=== PATIENT | female | born 1965 | race Caucasian/White ===

== ENCOUNTER 2022-04-06 11:03 | Emergency (ER) | payer OTHER ==
[2022-04-06 14:09] LABS: BASOPHIL 0.5 % (0-2); EOSINOPHIL 0.5 % (0-5); HCT 27.3 % (37.0-47.0); LYMPHOCYTE 30.4 % (15-48); MCV 94.1 fL (78.0-100.0); MONOCYTE 7.1 % (0-12); MPV 11.1 fL (6.0-9.5); NEUTROPHIL 52.7 % (41-80); RDW 16.4 % (11.5-14.0); WBC 10.8 K/uL (4.0-10.5)
[2022-04-06 14:31] LABS: PLT 19 K/uL (150-400)
[2022-04-06 15:27] LABS: INR 1.01 (0.9-1.2)
[2022-04-06 15:28] LABS: BUN/CREAT RATIO (CALC) 31.7 RATIO; CREATININE 0.6 mg/dL (0.51-0.95); POTASSIUM 3.5 mmol/L (3.5-5.1)
[2022-04-06 15:46] LABS: ALBUMIN 2.3 g/dL (3.4-5.0); BILIRUBIN - DIRECT 1.1 mg/dL (0.00-0.20); BILIRUBIN - TOTAL 1.8 mg/dL (0.2-1.0); GLOBULIN (CALCULATION) 3.1 g/dL; TOTAL PROTEIN 5.4 g/dL (6.4-8.2)
== END 2022-04-06 16:18 | disposition home or self-care (01) ==
LOC: FER 11:03
PROVIDERS: Emergency Medicine; Nurse Practitioner Family
DX: I87.2 Venous insufficiency (chronic) (peripheral) (principal); D69.6 Thrombocytopenia, unspecified; R94.5 Abnormal results of liver function studies; E11.9 Type 2 diabetes mellitus without complications; J44.9 Chronic obstructive pulmonary disease, unspecified; I10 Essential (primary) hypertension; Z28.310 Unvaccinated for COVID-19; Z88.8 Allergy status to other drugs, medicaments and biological substances; Z79.4 Long term (current) use of insulin; Z79.899 Other long term (current) drug therapy
CPT/HCPCS: 36415; 80048; 80076; 85025; 85610; 85730; 99283

== ENCOUNTER 2022-04-08 17:54 | Inpatient (IN) | payer OTHER ==
[~2022-04-08] VITALS: Ht 167.6 cm; Wt 80.9 kg
[2022-04-08 19:51] LABS: INR 1.11 (0.9-1.2); PTT 24.4 SECONDS (24.9-34.6)
[2022-04-08 20:01] LABS: BILIRUBIN - TOTAL 2.7 mg/dL (0.2-1.0); CREATININE 0.71 mg/dL (0.51-0.95); GLOBULIN (CALCULATION) 3.8 g/dL; POTASSIUM 3.5 mmol/L (3.5-5.1); TOTAL PROTEIN 5.8 g/dL (6.4-8.2)
[2022-04-08 20:28] LABS: CORONAVIRUS 2019 SARS-COV-2 NEGATIVE (NEGATIVE); INFLUENZA A NAA NEGATIVE (NEGATIVE)
[2022-04-08 20:33] LABS: BASOPHIL 0.5 % (0-2); EOSINOPHIL 0.5 % (0-5); HCT 24.6 % (37.0-47.0); HGB 8.1 g/dl (12.5-16.0); LYMPHOCYTE 43.9 % (15-48); MCHC 32.9 g/dL (32.0-36.0); MCV 94.3 fL (78.0-100.0); MONOCYTE 4.6 % (0-12); MPV 13.7 fL (6.0-9.5); NEUTROPHIL 43.3 % (41-80); NRBC 6.2; RBC 2.61 M/uL (4.20-5.40); RDW 16.9 % (11.5-14.0)
[2022-04-08 20:38] LABS: PLT 14 K/uL (150-400); WBC 5.7 K/uL (4.0-10.5)
[2022-04-08 20:52] LABS: LACTIC ACID 2.1 mmol/L (0.4-1.9)
[2022-04-08 20:53] LABS: ACETAMINOPHEN (TYLENOL) < 2.0 ug/mL (10.0-30.0)
[2022-04-09 06:16] LABS: BASOPHIL 0.6 % (0-2); EOSINOPHIL 0.4 % (0-5); HCT 22.4 % (37.0-47.0); HGB 7.4 g/dl (12.5-16.0); LYMPHOCYTE 36.4 % (15-48); MCH 31.4 pg (25.0-31.0); MCV 94.9 fL (78.0-100.0); MPV 10.9 fL (6.0-9.5); NEUTROPHIL 53.5 % (41-80); NRBC 5.9; RBC 2.36 M/uL (4.20-5.40); WBC 4.7 K/uL (4.0-10.5)
[2022-04-09 06:28] LABS: PLT 24 K/uL (150-400)
[2022-04-09 06:49] LABS: ALBUMIN 1.6 g/dL (3.4-5.0); BILIRUBIN - TOTAL 2.4 mg/dL (0.2-1.0); BUN/CREAT RATIO (CALC) 28.6 RATIO; CREATININE 0.77 mg/dL (0.51-0.95); GLOBULIN (CALCULATION) 2.8 g/dL; POTASSIUM 2.9 mmol/L (3.5-5.1); TOTAL PROTEIN 4.4 g/dL (6.4-8.2)
[2022-04-09 06:53] LABS: BILIRUBIN 2+ mg/dL (NEGATIVE); BLOOD 2+ Ery/uL (NEGATIVE); CLARITY CLEAR (CLEAR); COLOR YELLOW (YELLOW); GLUCOSE (U) 1+ mg/dL (NORMAL); LEUKOCYTES NEGATIVE Leu/uL (NEGATIVE); NITRITE NEGATIVE (NEGATIVE); PROTEIN 3+ mg/dL (NEGATIVE); SPECIFIC GRAVITY 1.025 (1.001-1.030)
[2022-04-09 07:04] LABS: AMORPHOUS URATES CRYSTALS MODERATE; URINARY RBC RARE; URINARY WBC RARE
[2022-04-09 09:20] LABS: BILIRUBIN 2+ mg/dL (NEGATIVE); BLOOD 2+ Ery/uL (NEGATIVE); CLARITY CLEAR (CLEAR); COLOR YELLOW (YELLOW); GLUCOSE (U) NORMAL (NORMAL); LEUKOCYTES NEGATIVE Leu/uL (NEGATIVE); NITRITE NEGATIVE (NEGATIVE); PROTEIN 3+ mg/dL (NEGATIVE)
[2022-04-09 09:30] LABS: OPIATES POSITIVE (NEGATIVE)
[2022-04-09 09:31] LABS: AMPHETAMINES NEGATIVE (NEGATIVE); BARBITURATES NEGATIVE (NEGATIVE); ECSTASY (MDMA) NEGATIVE (NEGATIVE); MARIJUANA (THC) NEGATIVE (NEGATIVE); METHADONE NEGATIVE (NEGATIVE); OXYCODONE NEGATIVE (NEGATIVE)
[2022-04-09 09:39] LABS: AMORPHOUS URATES CRYSTALS TRACE; BACTERIA TRACE
[2022-04-09 09:47] LABS: PHOSPHORUS 2.7 mg/dL (2.6-4.7)
--- NOTE | 2022-04-09 15:36 | NUR ---
03/09/22 An assessment was conducted at bedside with Ms. Rodriguez's sister, Kristin Lawson, , present. Ms. Lawson answered the majority of the questions due to patient's inability. Ms. Rodriguez lives at home with her spouse, adult daughter and 2 grandchildren. She has a wc, rw, and 3in1. No HH services are provided. Family assist with bathing, dressing, transfers, and to the bathroom. PCP = Lazara Barclay NP at [facility] in [place]. She saw Dr. Ribeiro for the first time on 04/07. They are planning scans and chemo per Ms. Lawson. -
[2022-04-09 15:39] LABS: FT4 (FREE T4) 0.7 ng/dL (0.76-1.46)
--- NOTE | 2022-04-09 18:44 | NUR ---
Order received for PICC Line. Risks and benefits explained for PICC line placement with patient and . Verbalized understanding. Consent obtained. Time Out completed with Blossom HUANG. Patient's left upper arm vein visualized using the Site Rite 6. The site was marked with a surgical marker. Arm circumference and initial PICC length measured. The Sherlock device was placed on the patient's chest in the appropriate position. The patient was draped and prepped in sterile fashion. The area was then numbed with 1 cc of 1 % Lidocaine. Time was given for Lidocaine to take effect. A 21 gauge needle was used to access the vein guided by the Site Rite 6 ultrasound. Blood return noted. The guide wire was advanced through the needle into the vein. The needle was removed and the tourniquet released. The sheath introducer was inserted over the guide wire into the vein. The wire was removed and the cap was placed on the sheath introducer. The 5 FR dual lumen Power PICC was trimmed at 45 cm then guided into the position using the Sherlock device. The sheath introducer was removed. Insertion site cleaned, stat lock and sterile dressing applied. STAT CXR was ordered to verify placement. Per radiology the PICC needed to be pulled 5 cm to be in SVC. This was completed with update to Charlene Rachel RN.
--- NOTE | 2022-04-09 21:54 | NUR ---
WINDY BORJA APRN ADVISED PTS PRIMARY RN THAT THE PICC LINE WAS IN THE RIGHT ATRIUM AND NEEDS TO BE WITHDRAWN BY 5CM. Mackenzie SIMON RN AND Tonya ZIMMERMAN RN VERIFIED THAT THE PICC WAS INITIALLY INSERTED TO THE 5CM CHACHA. OLD DRESSING REMOVED. USING STERILE TECHNIQUE CLEANSED THE SITE, WITHDREW CATHETER TO THE 10CM CHACHA, SITE RECLEANSED AND DRESSED WITH A NEW STERILE CHG DRESSING. STAT XRAY PLACED TO CONFIRM PLACEMENT. PT TOLERATES THE PROCEDURE WELL.
[2022-04-10 07:11] LABS: BASOPHIL 0.8 % (0-2); EOSINOPHIL 0.5 % (0-5); HCT 25.6 % (37.0-47.0); HGB 8.2 g/dl (12.5-16.0); LYMPHOCYTE 29.9 % (15-48); MCH 30.9 pg (25.0-31.0); MCV 96.6 fL (78.0-100.0); MPV 10.5 fL (6.0-9.5); NEUTROPHIL 50.7 % (41-80); NRBC 5.3; RBC 2.65 M/uL (4.20-5.40); RDW 17.1 % (11.5-14.0); WBC 7.4 K/uL (4.0-10.5)
[2022-04-10 07:13] LABS: PLT 44 K/uL (150-400)
[2022-04-10 07:56] LABS: ALBUMIN 1.5 g/dL (3.4-5.0); ALKALINE PHOSHATASE 325 U/L (46-116); ALT 581 U/L (14-59); AST 678 U/L (15-37); BILIRUBIN - TOTAL 2.6 mg/dL (0.2-1.0); BUN 23 mg/dL (7-18); BUN/CREAT RATIO (CALC) 28.4 RATIO; C-REACTIVE PROTEIN <0.20 mg/dL (<=0.90); CHLORIDE 105 mmol/L (98-107); CO2 (BICARBONATE) 28 mmol/L (21-32); CREATININE 0.81 mg/dL (0.51-0.95); GLOBULIN (CALCULATION) 3.6 g/dL; GLUCOSE 178 mg/dL (74-106); MAGNESIUM 1.8 mg/dL (1.8-2.4); PHOSPHORUS 3.8 mg/dL (2.6-4.7); POTASSIUM 3.1 mmol/L (3.5-5.1); TOTAL PROTEIN 5.1 g/dL (6.4-8.2)
[2022-04-10] MEDS ORDERED: ALDACTONE50 MG PO (09:15)
[2022-04-10] MEDS ORDERED: COMPAZINE10 MG PO (09:15)
[2022-04-10] MEDS ORDERED: K-TAB ER20 MEQ PO (09:20)
[2022-04-10] MEDS ORDERED: HCTZ25 MG PO (09:22)
[2022-04-10] MEDS ORDERED: LANTUS SOL100 UNIT/1 SC (09:22)
[2022-04-10] MEDS ORDERED: PROAIR HFA8.5 GM INH (09:24)
[2022-04-10] MEDS ORDERED: COZAAR 100MG T100 MG PO (09:25)
[2022-04-10] MEDS ORDERED: NORVASC5 MG PO (09:26)
[2022-04-10 11:14] LABS: BILIRUBIN 1+ mg/dL (NEGATIVE); BLOOD 2+ Ery/uL (NEGATIVE); CLARITY CLEAR (CLEAR); COLOR YELLOW (YELLOW); GLUCOSE (U) NORMAL (NORMAL); LEUKOCYTES NEGATIVE Leu/uL (NEGATIVE); NITRITE NEGATIVE (NEGATIVE); PROTEIN 2+ mg/dL (NEGATIVE); SPECIFIC GRAVITY 1.025 (1.001-1.030); pH 5.5 (5.0-9.0)
[2022-04-10 11:21] LABS: BACTERIA TRACE; GRANULAR CASTS TRACE; RENAL EPITHELIAL CELLS RARE; URINARY WBC RARE
--- NOTE | 2022-04-10 13:21 | NUR ---
04/10/22 [facility] and said patient is out of the window for chemo therapy. Dr. Day telephoned the family and they decided on comfort care. Dr. Blanco and this social and political studies professor met with Mr. Rodriguez and his sister, Stacy to discuss care planning. They decided for patient to remain at [facility] because she is not stable for transfer home at this time.
--- NOTE | 2022-04-10 13:45 | NUR ---
SPOKE W/ DR LANCASTER ABOUT PT'S RESPIRATORY STATUS AND HER DESATTING IN THE LOW 80'S AND RECOMMENDED IV ROBINUL TO HELP DRY UP HER SECRETIONS. DR LANCASTER ADDED IV ROBINUL TO PT'S MAR. IV ROBINUL WAS ADMINISTERED TO PT. PT'S RESPIRATORY STATUS WAS STILL COMPROMISED AND PT BECAME TACHYCARDIC IN THE 150'S W/ SATS IN THE LOW 90'S. SPOKE W/ DR LANCASTER ABOUT PT'S STATUS AND HE RECOMMENDED IV DECADRON, IV VALIUM, AND CHANGING ABX FOR HER PNA. AROUND THAT TIME, DR PICHARDO'S SENIOR WEB ANALYST (ONCOLOGY) WAS IN THE PT'S ROOM DISCUSSING PLAN OF CARE OPTIONS, INCLUDING TERMINATION OF CARE D/T PT'S DECLINING STATUS. PT'S FAMILY PREFERRED TO DISCUSS THESE OPTIONS W/ DR PICHARDO HIMSELF. DR PICHARDO WAS CONTACTED VIA TELEPHONE AND DISCUSSED OPTIONS W/ PT'S . PT'S SPOKE W/ DR LANCASTER REGARDING PLAN OF CARE AND AGREED TO PLACE PT IN COMFORT CARE AND CHANGE CODE TO DNR.
--- NOTE | 2022-04-10 14:45 | NUR ---
RECEIVED PT FROM ICU AT 1421 A COMFORT CARE PATIENT. PT ON 12L OXYMIZER. RN NOTIFIED RT AND REQUESTED PT'S OXYGEN TO BE DECREASED. RT DECLINED. R/T COMFORT CARE MEASURES RN TURNED OXYGEN DOWN TO 5L AT THIS TIME. EDUCATED FAMILY ON MEDICATIONS THAT ARE ORDERED AND THEIR FREQUENCY.
--- NOTE | 2022-04-10 18:39 | NUR ---
PATIENT PRONOUNCED AT [address] LANCASTER. FAMILY HAS CHOSEN [facility] IN [place].
--- NOTE | 2022-04-10 19:39 | NUR ---
PT'S [id number] ANA LARSON REQUESTED TO STAY AND HELP CLEAN PT UP FOR HOME. SHE CHOSE TO TAKE PT'S JEWELRY HOME INSTEAD OF LEAVING IT WITH THE PT FOR TRANSPORT TO THE HOME.
--- NOTE | 2022-04-10 20:02 | NUR ---
[facility] ESCORTED BY SECURITY TO LIVESTOCK TRADER PATIENT FROM ROOM
== END 2022-04-10 20:10 | disposition expired | DRG 871 ==
LOC: FER 17:54 → FICU 22:33 → FMS 04-10 13:31
PROVIDERS: Internal Medicine; Nurse Practitioner; ADMIT Internal Medicine
PROC: 30233R1 Transfusion of Nonautologous Platelets into Peripheral Vein, Percutaneous Approach (ICD-10-PCS; 2022-04-08)
PROC: 3E03329 Introduction of Other Anti-infective into Peripheral Vein, Percutaneous Approach (ICD-10-PCS; 2022-04-08)
PROC: 02H633Z Insertion of Infusion Device into Right Atrium, Percutaneous Approach (ICD-10-PCS; principal; 2022-04-09)
PROC: 30233N1 Transfusion of Nonautologous Red Blood Cells into Peripheral Vein, Percutaneous Approach (ICD-10-PCS; 2022-04-10)
PROC: 30233R1 Transfusion of Nonautologous Platelets into Peripheral Vein, Percutaneous Approach (ICD-10-PCS; 2022-04-10)
DX: A41.9 Sepsis, unspecified organism (principal); E43 Unspecified severe protein-calorie malnutrition; G93.41 Metabolic encephalopathy; J18.9 Pneumonia, unspecified organism; J96.01 Acute respiratory failure with hypoxia; L03.116 Cellulitis of left lower limb; L03.115 Cellulitis of right lower limb; C7A.1 Malignant poorly differentiated neuroendocrine tumors; C78.7 Secondary malignant neoplasm of liver and intrahepatic bile duct; L97.929 Non-pressure chronic ulcer of unspecified part of left lower leg with unspecified severity; L97.919 Non-pressure chronic ulcer of unspecified part of right lower leg with unspecified severity; C78.89 Secondary malignant neoplasm of other digestive organs; C79.52 Secondary malignant neoplasm of bone marrow; C79.31 Secondary malignant neoplasm of brain; R17 Unspecified jaundice; J44.0 Chronic obstructive pulmonary disease with (acute) lower respiratory infection; Z66 Do not resuscitate; Z51.5 Encounter for palliative care; Z20.822 Contact with and (suspected) exposure to COVID-19; R65.20 Severe sepsis without septic shock; D63.0 Anemia in neoplastic disease; D69.59 Other secondary thrombocytopenia; R74.01 Elevation of levels of liver transaminase levels; E11.622 Type 2 diabetes mellitus with other skin ulcer; E11.51 Type 2 diabetes mellitus with diabetic peripheral angiopathy without gangrene; E11.65 Type 2 diabetes mellitus with hyperglycemia; K21.9 Gastro-esophageal reflux disease without esophagitis; I10 Essential (primary) hypertension; H05.20 Unspecified exophthalmos; E78.5 Hyperlipidemia, unspecified; F17.210 Nicotine dependence, cigarettes, uncomplicated; Z88.8 Allergy status to other drugs, medicaments and biological substances; Z79.899 Other long term (current) drug therapy; Z79.4 Long term (current) use of insulin; Z87.440 Personal history of urinary (tract) infections; Z28.310 Unvaccinated for COVID-19
CPT/HCPCS: 36415; 36430; 36600; 70450; 71045; 71250; 80053; 80305; 81001; 82140; 82550; 82607; 82803; 82962; 83605; 83735; 83874; 83880; 84100; 84145; 84439; 84443; 85025; 85610; 85730; 86140; 86850; 86900; 86901; 86922; 87040; 87070; 87077; 87088; 87186; 87205; 93005; 94640; 94760; C9113; G0480; J1170; J1642; J1885; J2020; J2185; J2270; J2543; J3360; J3480; J7030; J7120; P9016; P9035; U0002